=== PATIENT | male | born 2000 | race Caucasian/White ===

== ENCOUNTER 2024-01-24 22:49 | Emergency (ER) | payer BC ==
[2024-01-24 23:04] VITALS: BP 112/60; PULSE 82; RESP 16; BMI 25.0
[2024-01-24] MEDS ORDERED: DIPHTH,PERTUSS(ACELL),TET 0.5 ML DISP.SYRIN IM ONE (23:52)
[2024-01-25] MEDS ORDERED: AMOX TR/POT CLAV 875MG/125MG TABLETS (FP) ONE (00:06)
[2024-01-25] MEDS: AMOX TR/POT CLAV 875MG/125MG TABLETS (FP) PO ONE (00:07)
[2024-01-25] MEDS: DIPHTH,PERTUSS(ACELL),TET 0.5 ML DISP.SYRIN IM ONE (00:15)
== END 2024-01-25 00:17 | disposition home or self-care (01) ==
LOC: FER 22:49
PROC: 0CQ10ZZ Repair Lower Lip, Open Approach (ICD-10-PCS; principal; 2024-01-24)
PROC: 3E0234Z Introduction of Serum, Toxoid and Vaccine into Muscle, Percutaneous Approach (ICD-10-PCS; 2024-01-25)
DX: S01.511A Laceration without foreign body of lip, initial encounter (principal); W50.0XXA Accidental hit or strike by another person, initial encounter; Y93.67 Activity, basketball
CPT/HCPCS: 90715; 99284-25